=== PATIENT | male | born 1955 | race Two or more races ===

== ENCOUNTER 2024-04-25 12:28 | Inpatient (IN) | payer MEDICARE, OTHER ==
[~2024-04-25] VITALS: Ht 182.9 cm; Wt 96.2 kg
[2024-04-25] MEDS ORDERED: HYDROMORPHONE 1 MG/1 ML DISP.SYRIN ONE (12:48)
[2024-04-25] MEDS ORDERED: ONDANSETRON HCL/PF 4 MG/2 ML VIAL ONE ×2 (12:48→14:42)
[2024-04-25] MEDS: HYDROMORPHONE INJ 2 MG/ML DISP.SYRIN IV ONE (12:55)
[2024-04-25] MEDS: ONDANSETRON HCL/PF 4 MG/2 ML VIAL IVP ONE (12:55)
[2024-04-25] MEDS: IV NS 0.9% 1,000 ML BAG IV ONE ×2 (12:59→14:50)
[2024-04-25] MEDS: TDAP [DIPH/PERTUSSIS/TET] 0.5 ML VIAL IM ONE (13:00)
[2024-04-25 13:17] LABS: CREATININE 1.1 mg/dL (0.6-1.3); POTASSIUM 3.7 mmol/L (3.5-5.1)
[2024-04-25 13:41] LABS: BASOPHILS # (AUTO) 0.1 K/uL (0.0-0.2); BASOPHILS % (AUTO) 0.6 % (0.0-2.0); EOSINOPHILS % (AUTO) 4.2 % (0.0-6.0); HEMATOCRIT 39 % (39-51); HEMOGLOBIN 13.5 g/dL (13.5-17.5); LYMPHOCYTES # (AUTO) 3.7 K/uL (0.8-4.8); LYMPHOCYTES % (AUTO) 16.4 % (20.0-44.0); MEAN CORPUSCULAR HEMOGLOBIN 31 PG (26.0-33.0); MEAN CORPUSCULAR HGB CONC 35 g/dl (31.0-36.0); MEAN CORPUSCULAR VOLUME 90 fL (80-96); MONOCYTES # (AUTO) 1.1 K/uL (0.1-1.30); MONOCYTES % (AUTO) 4.9 % (2.0-12.0); NEUTROPHILS # (AUTO) 16.8 K/uL (1.8-8.9); NEUTROPHILS % (AUTO) 73.9 % (43.0-81.0); PLATELET COUNT (AUTO) 252 K/uL (150-450); RED BLOOD CELL COUNT(AUTO) 4.32 MIL/uL (4.5-6.0); RED CELL DISTRIBUTION WIDTH 13.2 % (11.5-15.0); WHITE BLOOD COUNT (AUTO) 22.7 K/uL (4.3-11.0)
[2024-04-25] MEDS ORDERED: PROPOFOL 1,000 MG/100 ML BOTTLE IV ONE (14:30)
[2024-04-25] MEDS ORDERED: MORPHINE SULFATE INJ 4 MG/ML DISP.SYRIN ONE (14:42)
[2024-04-25] MEDS ORDERED: PROPOFOL 0 ML IV ONE (14:42)
[2024-04-25] MEDS: MORPHINE SULFATE INJ 2 MG/ML DISP.SYRIN IV ONE (14:50)
[2024-04-25] MEDS: ONDANSETRON HCL/PF 4 MG/2 ML VIAL IV ONE (14:50)
[2024-04-25] MEDS ORDERED: LIDOCAINE 1% INJ 50 ML MDV IJ ONE (16:21)
[2024-04-25 16:53] LABS: INR 1.04 (0.91-1.10); PARTIAL THROMBOPLASTIN TIME 26.8 SEC (24.3-34.3)
[2024-04-25] MEDS: LIDOCAINE 1% INJ 50 ML MDV IJ ONE (17:10)
[2024-04-25] MEDS: CEFAZOLIN 500 MG VIAL IV ONE (17:16)
[2024-04-25] MEDS: ANCEF 1 GM/50 ML D5W IV ONE (17:16)
[2024-04-25 18:45] VITALS: BP 178/110; TEMP 97.9; O2SAT 100
[2024-04-25] MEDS ORDERED: Z GUARD REMEDY 4 OZ OINT TP PRN (19:00)
[2024-04-25] MEDS ORDERED: MAGNESIUM HYDROXIDE 30 ML UDC PO PRN (19:00)
[2024-04-25] MEDS ORDERED: ONDANSETRON HCL/PF 4 MG/2 ML VIAL IVP PRN (19:00)
[2024-04-25] MEDS ORDERED: ACETAMINOPHEN 325 MG TABLET PO PRN (19:00)
[2024-04-25 20:00] VITALS: BP 145/90; TEMP 98.6; O2SAT 96; O2SAT 98
[2024-04-25] MEDS: MORPHINE SULFATE INJ 4 MG/ML DISP.SYRIN IV PRN (20:36)
[2024-04-25] MEDS ORDERED: CEFAZOLIN 1 GM in IV D5W 50 ML IV SCH (21:00)
[2024-04-25] MEDS: IV NS 0.9% 1,000 ML IV PRN (23:45)
[2024-04-25] MEDS: CEFAZOLIN 2 GM in IV D5W 100 ML IV SCH (23:54)
[2024-04-26 07:00] VITALS: BP 170/97; TEMP 98.8; O2SAT 96
[2024-04-26 07:28] LABS: CALCIUM, SERUM 8.3 mg/dL (8.5-10.1); PHOSPHORUS 2.5 mg/dL (2.5-4.9)
[2024-04-26] MEDS: PANTOPRAZOLE 40 MG TABLET.DR PO SCH (07:30)
[2024-04-26 07:52] LABS: BASOPHILS % (AUTO) 0.4 % (0.0-2.0); EOSINOPHILS # (AUTO) 0.2 K/uL (0.0-0.7); EOSINOPHILS % (AUTO) 2.3 % (0.0-6.0); HEMATOCRIT 34 % (39-51); HEMOGLOBIN 11.8 g/dL (13.5-17.5); LYMPHOCYTES # (AUTO) 1.3 K/uL (0.8-4.8); LYMPHOCYTES % (AUTO) 14.8 % (20.0-44.0); MEAN CORPUSCULAR HEMOGLOBIN 31 PG (26.0-33.0); MEAN CORPUSCULAR HGB CONC 34 g/dl (31.0-36.0); MEAN CORPUSCULAR VOLUME 90 fL (80-96); MONOCYTES # (AUTO) 0.7 K/uL (0.1-1.30); NEUTROPHILS # (AUTO) 6.8 K/uL (1.8-8.9); NEUTROPHILS % (AUTO) 74.5 % (43.0-81.0); PLATELET COUNT (AUTO) 211 K/uL (150-450); RED BLOOD CELL COUNT(AUTO) 3.81 MIL/uL (4.5-6.0); RED CELL DISTRIBUTION WIDTH 13.5 % (11.5-15.0); WHITE BLOOD COUNT (AUTO) 9.1 K/uL (4.3-11.0)
[2024-04-26 08:14] LABS: THYROID STIMULATING HORMONE 2.97 uIU/mL (0.358-3.74); URIC ACID 3.1 mg/dL (2.6-7.2)
[2024-04-26] MEDS ORDERED: FENTANYL PF 100MCG/2ML AMPUL ONE (08:40)
[2024-04-26] MEDS ORDERED: FAMOTIDINE/PF INJ 20 MG/2 ML VIAL IV ONE (08:41)
[2024-04-26] MEDS ORDERED: ROPIVACAINE HCL 0.5% 5 MG/ML 30ML VIAL ONE (08:41)
[2024-04-26] MEDS ORDERED: ACETAMINOPHEN 325 MG TABLET ONE (09:20)
[2024-04-26 09:51] LABS: THYROID STIMULATING HORMONE 3.22 uIU/mL (0.358-3.74)
[2024-04-26] MEDS ORDERED: VANCOMYCIN 1 GM VIAL ONE (09:52)
[2024-04-26] MEDS ORDERED: BUPIVACAINE 0.5 % PF 150 MG/30 ML VIAL ONE (09:52)
[2024-04-26] MEDS ORDERED: LABETALOL HCL IV 100MG VIAL ONE (11:05)
[2024-04-26 11:30] VITALS: BP 153/75; TEMP 98.4; O2SAT 95
[2024-04-26] MEDS ORDERED: LABETALOL 20 MG/4 ML VIAL IV PRN (11:30)
[2024-04-26] MEDS ORDERED: ONDANSETRON HCL/PF 4 MG/2 ML VIAL IVP PRN (11:30)
[2024-04-26] MEDS ORDERED: HYDROMORPHONE INJ 2 MG/ML DISP.SYRIN IV PRN (11:30)
[2024-04-26 16:00] VITALS: BP 136/106; TEMP 98.2; O2SAT 94; O2SAT 97
[2024-04-26 20:00] VITALS: BP 132/77; TEMP 98.4; TEMP 98.9; O2SAT 99
[2024-04-27 07:00] VITALS: BP 144/91; TEMP 98.4; O2SAT 96
[2024-04-27 07:13] LABS: CALCIUM, SERUM 8.4 mg/dL (8.5-10.1); CREATININE 0.9 mg/dL (0.6-1.3); MAGNESIUM 2.2 mg/dL (1.8-2.4); PHOSPHORUS 2.5 mg/dL (2.5-4.9); POTASSIUM 4.2 mmol/L (3.5-5.1)
[2024-04-27 07:24] LABS: BASOPHILS % (AUTO) 0.1 % (0.0-2.0); HEMATOCRIT 33 % (39-51); HEMOGLOBIN 11.4 g/dL (13.5-17.5); LYMPHOCYTES # (AUTO) 1.8 K/uL (0.8-4.8); LYMPHOCYTES % (AUTO) 12.7 % (20.0-44.0); MEAN CORPUSCULAR HEMOGLOBIN 31 PG (26.0-33.0); MEAN CORPUSCULAR HGB CONC 34 g/dl (31.0-36.0); MEAN CORPUSCULAR VOLUME 91 fL (80-96); MONOCYTES # (AUTO) 1.2 K/uL (0.1-1.30); MONOCYTES % (AUTO) 8.9 % (2.0-12.0); NEUTROPHILS # (AUTO) 10.8 K/uL (1.8-8.9); NEUTROPHILS % (AUTO) 78.3 % (43.0-81.0); PLATELET COUNT (AUTO) 185 K/uL (150-450); RED BLOOD CELL COUNT(AUTO) 3.67 MIL/uL (4.5-6.0); RED CELL DISTRIBUTION WIDTH 13.2 % (11.5-15.0); WHITE BLOOD COUNT (AUTO) 13.8 K/uL (4.3-11.0)
[2024-04-27] MEDS: HYDROCODONE/APAP 10/325MG TABLET PO PRN (13:33)
[2024-04-27 16:00] VITALS: BP 132/81; TEMP 98.6; O2SAT 98
[2024-04-27 20:00] VITALS: BP 139/92; TEMP 98.6; O2SAT 98
[2024-04-28 06:57] LABS: BASOPHILS % (AUTO) 0.4 % (0.0-2.0); EOSINOPHILS # (AUTO) 0.2 K/uL (0.0-0.7); EOSINOPHILS % (AUTO) 1.4 % (0.0-6.0); HEMATOCRIT 32 % (39-51); HEMOGLOBIN 11.3 g/dL (13.5-17.5); LYMPHOCYTES % (AUTO) 26.1 % (20.0-44.0); MEAN CORPUSCULAR HEMOGLOBIN 32 PG (26.0-33.0); MEAN CORPUSCULAR HGB CONC 35 g/dl (31.0-36.0); MEAN CORPUSCULAR VOLUME 90 fL (80-96); MONOCYTES # (AUTO) 1.2 K/uL (0.1-1.30); MONOCYTES % (AUTO) 10.8 % (2.0-12.0); NEUTROPHILS % (AUTO) 61.3 % (43.0-81.0); PLATELET COUNT (AUTO) 182 K/uL (150-450); RED BLOOD CELL COUNT(AUTO) 3.58 MIL/uL (4.5-6.0); RED CELL DISTRIBUTION WIDTH 13.3 % (11.5-15.0); WHITE BLOOD COUNT (AUTO) 11.4 K/uL (4.3-11.0)
[2024-04-28 07:30] VITALS: BP 149/100; TEMP 98.4; O2SAT 97
[2024-04-28 16:00] VITALS: BP 145/96; TEMP 98.1; O2SAT 97
[2024-04-28 20:00] VITALS: BP 130/89; TEMP 98.6; O2SAT 98
[2024-04-29 07:30] VITALS: BP 158/102; TEMP 98.2; O2SAT 98
[2024-04-29 07:57] LABS: BASOPHILS # (AUTO) 0.1 K/uL (0.0-0.2); BASOPHILS % (AUTO) 0.5 % (0.0-2.0); EOSINOPHILS # (AUTO) 0.3 K/uL (0.0-0.7); EOSINOPHILS % (AUTO) 2.6 % (0.0-6.0); HEMATOCRIT 36 % (39-51); HEMOGLOBIN 12.2 g/dL (13.5-17.5); LYMPHOCYTES # (AUTO) 2.1 K/uL (0.8-4.8); LYMPHOCYTES % (AUTO) 20.5 % (20.0-44.0); MEAN CORPUSCULAR HEMOGLOBIN 31 PG (26.0-33.0); MEAN CORPUSCULAR HGB CONC 34 g/dl (31.0-36.0); MEAN CORPUSCULAR VOLUME 90 fL (80-96); MONOCYTES # (AUTO) 0.9 K/uL (0.1-1.30); MONOCYTES % (AUTO) 8.3 % (2.0-12.0); NEUTROPHILS # (AUTO) 7.1 K/uL (1.8-8.9); NEUTROPHILS % (AUTO) 68.1 % (43.0-81.0); PLATELET COUNT (AUTO) 214 K/uL (150-450); RED BLOOD CELL COUNT(AUTO) 3.93 MIL/uL (4.5-6.0); RED CELL DISTRIBUTION WIDTH 13.3 % (11.5-15.0); WHITE BLOOD COUNT (AUTO) 10.5 K/uL (4.3-11.0)
[2024-04-29 08:25] LABS: BILIRUBIN,TOTAL 0.7 mg/dL (0.2-1.0); CALCIUM, SERUM 8.5 mg/dL (8.5-10.1); CREATININE 0.9 mg/dL (0.6-1.3); MAGNESIUM 2.2 mg/dL (1.8-2.4); PHOSPHORUS 3.2 mg/dL (2.5-4.9); POTASSIUM 4.2 mmol/L (3.5-5.1); TOTAL PROTEIN, SERUM 7.2 g/dL (6.4-8.2)
[2024-04-29 20:00] VITALS: BP 133/83; TEMP 97.9; O2SAT 97
[2024-04-30 08:00] VITALS: BP 137/89; TEMP 98.2; O2SAT 99
[2024-04-30 16:00] VITALS: BP 139/100; TEMP 99; O2SAT 97
== END 2024-04-30 18:40 | DRG 511 ==
LOC: ER 12:52 → TELE 15:31 → MED 21:35
PROVIDERS: ADMIT Nurse Practitioner Family; ATTEND Internal Medicine
PROC: 0HQGXZZ Repair Left Hand Skin, External Approach (ICD-10-PCS; 2024-04-25)
PROC: 0PSJ04Z Reposition Left Radius with Internal Fixation Device, Open Approach (ICD-10-PCS; principal; 2024-04-26)
DX: S52.572A Other intraarticular fracture of lower end of left radius, initial encounter for closed fracture (principal); E22.2 Syndrome of inappropriate secretion of antidiuretic hormone; S32.592A Other specified fracture of left pubis, initial encounter for closed fracture; Z59.02 Unsheltered homelessness; W03.XXXA Other fall on same level due to collision with another person, initial encounter; R73.9 Hyperglycemia, unspecified; D64.9 Anemia, unspecified; D72.829 Elevated white blood cell count, unspecified; F17.210 Nicotine dependence, cigarettes, uncomplicated; I10 Essential (primary) hypertension; S61.412A Laceration without foreign body of left hand, initial encounter; Y04.2XXA Assault by strike against or bumped into by another person, initial encounter; Y93.9 Activity, unspecified; Z71.6 Tobacco abuse counseling; Y92.410 Unspecified street and highway as the place of occurrence of the external cause
CPT/HCPCS: 36415; 71045-TC; 72195-TC; 73090-TC; 73100-TC; 73110; 73502; 73721-TC; 80048-TC; 80053-TC; 80061-TC; 82728-TC; 83540-TC; 83735-TC; 83935-TC; 84100-TC; 84300-TC; 84439-TC; 84443-TC; 84550-TC; 85025-TC; 85730-TC; 86850-TC; 87040-TC; 93307-TC; 97112-TC; 97530-TC; A4217; A4223; A6253; A6402; C1713; G0378; J0690; J1100; J1171; J2270; J2405; J2704; J2765; J2795; J3010; J3370; J3490; J7030; J7060